=== PATIENT | female | born 1970 | race African-American/Black ===

== ENCOUNTER 2018-10-14 09:47 | Emergency (ER) | payer SELFPAY ==
--- NOTE | 2018-10-14 10:48 | RAD ---
RADIOGRAPH RIGHT FOOT THREE VIEWS: 10/14/2018 HISTORY: Persistent posttraumatic pain after blunt trauma to the toes. FINDINGS: No fracture identified. No dislocation. Pes planus. No high grade DJD. IMPRESSION: 1. No fracture identified. 2. Pes planus. 3. If symptoms do not improve, then follow-up dedicated three-view radiograph of the toes is recomme nded. POS: [facility]
== END 2018-10-14 10:15 | disposition home or self-care (01) ==
LOC: ERS 09:47
DX: S90.111A Contusion of right great toe without damage to nail, initial encounter (principal); W22.8XXA Striking against or struck by other objects, initial encounter

== ENCOUNTER 2020-03-24 20:46 | Emergency (ER) | payer BC, SELFPAY ==
--- NOTE | 2020-03-24 21:12 | RAD ---
Chest AP view INDICATION: Chest pain with history of heartburn COMPARISON: None FINDINGS: Lungs: The lungs are clear Cardiac silhouette: The cardiomediastinal silhouette appears within normal limits. Pulmonary vasculature: Normal Pleural spaces: No pleural effusion or pneumothorax is demonstrated. Upper abdomen: No abnormality seen. Osseous structures: No acute osseous abnormality. Additional findings: None. IMPRESSION: No acute cardiopulmonary abnormality.
[2020-03-24 21:42] LABS: #Eosinphils 0.1 thou/uL (0.0-0.7); #Lymphocytes 2.4 thou/uL (1.20-3.40); #Monocytes 0.8 thou/uL (0.11-0.59); #Neutrophils 5.6 thou/uL (1.40-6.50); %Basophils 0.3 % (0.0-1.0); %Eosinophils 1.3 % (0.0-10.0); %Lymphocytes 27.1 % (21.0-51.0); %Monocytes 8.5 % (0.0-10.0); %Neutrophils 62.7 % (42.0-75.0); Hemoglobin 13.5 g/dL (12.0-16.0); Mean Corpuscular HGB CONC 32.6 g/dL (32.0-36.0); Mean Corpuscular Hemoglobin 31.9 pg (27.0-31.0); Mean Corpuscular Volume 97.8 fL (78.0-98.0); Mean Platelet Volume 8.2 fL (7.4-10.4); Platelet Count 225 thou/uL (130-400); Red Blood Cell (RBC) Count 4.23 mill/uL (4.20-5.40); White Blood Cell (WBC) Count 8.9 thou/uL (4.8-10.8)
[2020-03-24 22:12] LABS: ALT (SGPT) 20 U/L (8-55); AST (SGOT) 32 U/L (5-34); Albumin 4.1 g/dL (3.5-5.0); Alkaline Phosphatase 118 U/L (40-110); Anion Gap 16 mmol/L (10-20); BUN (Urea Nitrogen) 16 mg/dL (9.8-20.1); Bilirubin, Total 0.2 mg/dL (0.2-1.2); Calc. Creatinine Clearance 0 mL/min (70-130); Carbon Dioxide 20 mmol/L (22-29); Chloride 103 mmol/L (98-107); Estimated GFR-MDRD Greater than 90; Globulin 3.9 g/dL (2.4-3.5); Glucose 74 mg/dL (70-105); Lipase 37 U/L (8-78); Potassium 4.4 mmol/L (3.5-5.1); Sodium 135 mmol/L (136-145)
--- NOTE | 2020-03-26 12:06 | EKG ---
Test Reason : Blood Pressure : / mmHG Vent. Rate : 067 BPM Atrial Rate : 067 BPM P-R Int : 192 ms QRS Dur : 072 ms QT Int : 386 ms P-R-T Axes : 056 015 013 degrees QTc Int : 407 ms Normal sinus rhythm Normal ECG Confirmed by MANOJ POWELL ([id number]), supervising editor trailer KIANNA VUONG ([id number] on 03/26/2020 12:05:58 PM Referred By: Confirmed By:MANOJ Pierre
== END 2020-03-24 22:23 | disposition left against medical advice (07) ==
LOC: ERS 20:46
DX: R07.9 Chest pain, unspecified (principal)
CPT/HCPCS: 71045; 80053; 83690; 84484; 85025; 93005; 94760

== ENCOUNTER 2022-04-28 08:45 | Emergency (ER) | payer SELFPAY | END 2022-04-28 09:41 | disposition home or self-care (01) | LOC: ERS 08:45 | DX: M25.562 Pain in left knee (principal) ==